=== PATIENT | female | born 1965 ===

== ENCOUNTER 2017-07-06 11:40 | Outpatient (RCR) | payer BC ==
[~2017-07-06] VITALS: Ht 165.1 cm; Wt 67.1 kg
== END 2017-07-09 | disposition home or self-care (01) ==
LOC: WCC 11:40
DX: L97.312 Non-pressure chronic ulcer of right ankle with fat layer exposed (principal); I87.2 Venous insufficiency (chronic) (peripheral); E24.0 Pituitary-dependent Cushing's disease; I10 Essential (primary) hypertension
CPT/HCPCS: 11042; 11045

== ENCOUNTER 2017-07-20 11:00 | Outpatient (RCR) | payer BC | END 2017-08-08 | disposition home or self-care (01) | LOC: WCC 11:00 | DX: L97.312 Non-pressure chronic ulcer of right ankle with fat layer exposed (principal); I87.2 Venous insufficiency (chronic) (peripheral); E24.0 Pituitary-dependent Cushing's disease; I10 Essential (primary) hypertension; Z88.2 Allergy status to sulfonamides | CPT/HCPCS: 11042; 11045 ==

== ENCOUNTER 2017-08-10 11:00 | Outpatient (RCR) | payer BC ==
[~2017-08-10] VITALS: Ht 165.1 cm; Wt 67.1 kg
== END 2017-09-08 | disposition home or self-care (01) ==
LOC: WCC 11:00
DX: L97.312 Non-pressure chronic ulcer of right ankle with fat layer exposed (principal); I87.2 Venous insufficiency (chronic) (peripheral); E24.0 Pituitary-dependent Cushing's disease; I10 Essential (primary) hypertension; E03.9 Hypothyroidism, unspecified
CPT/HCPCS: 11042

== ENCOUNTER 2017-09-21 09:00 | Outpatient (RCR) | payer BC | END 2017-10-08 | disposition home or self-care (01) | LOC: WCC 09:00 | DX: L97.312 Non-pressure chronic ulcer of right ankle with fat layer exposed (principal); I87.2 Venous insufficiency (chronic) (peripheral); E24.0 Pituitary-dependent Cushing's disease; I10 Essential (primary) hypertension; E03.9 Hypothyroidism, unspecified | CPT/HCPCS: G0463 ×2 ==